=== PATIENT | male | born 1990 | race Caucasian/White ===

== ENCOUNTER 2017-02-05 01:38 | Emergency (ER) | payer MEDICARE, MEDICAID ==
[~2017-02-05] VITALS: Ht 175.3 cm; Wt 72.0 kg
[~2017-02-05 01:38] MED LIST: FLUO-191 PO; OLAN10TA3 PO
[2017-02-05 02:10] LABS: HEMATOCRIT 42.5 % (41-53); HEMOGLOBIN 14.3 g/dL (13.5-17.5); MEAN CORPUSCULAR VOLUME 91 fL (80-100); RED BLOOD CELL COUNT(AUTO) 4.68 MIL/uL (4.50-5.90); WHITE BLOOD COUNT (AUTO) 10.9 K/uL (4.5-11.0)
[2017-02-05 02:11] LABS: BASOPHILS # (AUTO) 0.05 K/uL (0.00-0.20); BASOPHILS % (AUTO) 0.4 % (0.0-2.0); EOSINOPHILS # (AUTO) 0.13 K/uL (0.00-0.70); EOSINOPHILS % (AUTO) 1.19 % (1.0-6.0); LYMPHOCYTES # (AUTO) 4.9 K/uL (1.0-4.8); LYMPHOCYTES % (AUTO) 45.2 % (22.0-44.0); MEAN CORPUSCULAR HEMOGLOBIN 30.5 pg (26.0-34.0); MEAN CORPUSCULAR HGB CONC 33.7 G/dL (31.0-37.0); MONOCYTES # (AUTO) 0.8 K/uL (0.1-1.0); NEUTROPHILS % (AUTO) 46.2 % (40.0-70.0); PLATELET COUNT (AUTO) 278 K/uL (150-450); RED CELL DISTRIBUTION WIDTH 13.6 % (11.5-14.5)
[2017-02-05 02:18] LABS: ANION GAP 6 mmol/L (8-16); CARBON DIOXIDE 31 mmol/L (22-29); CHLORIDE 102 mmol/L (98-107); CREATININE 0.87 mg/dL (0.60-1.30); GLOMERULAR FILTR. RATE CALC > 60 mL/min (>60); POTASSIUM 4.5 mmol/L (3.5-5.1); SODIUM SERUM 139 mmol/L (136-145); UREA NITROGEN, BLOOD 8 mg/dL (7-18)
[2017-02-05 02:24] LABS: ALANINE AMINOTRANSFERASE 16 U/L (12-78); ALBUMIN 4.2 g/dL (3.4-5.0); ASPARTATE AMINOTRANSFERASE 15 U/L (15-37); BILIRUBIN,TOTAL 0.2 mg/dL (0.1-1.0); TOTAL PROTEIN, SERUM 7.8 g/dL (6.4-8.2)
[2017-02-05] MEDS ORDERED: LORazepam 2 MG TABLET PO ONE (03:45)
[2017-02-05 03:54] VITALS: BP 130/70
== END 2017-02-05 05:14 | disposition home or self-care (01) ==
LOC: EMS 01:39
DX: F41.9 Anxiety disorder, unspecified (principal); F20.9 Schizophrenia, unspecified; F32.9 Major depressive disorder, single episode, unspecified; F17.210 Nicotine dependence, cigarettes, uncomplicated; F12.90 Cannabis use, unspecified, uncomplicated; F19.90 Other psychoactive substance use, unspecified, uncomplicated
CPT/HCPCS: 36415; 80053; 80307; 85025; 99285; G0480

== ENCOUNTER 2017-05-22 19:49 | Inpatient (IN) | payer MEDICARE, MEDICAID ==
[~2017-05-22] VITALS: Ht 175.3 cm; Wt 57.9 kg
[2017-05-22 20:09] LABS: BASOPHILS % (AUTO) 0.5 % (0.0-2.0); EOSINOPHILS % (AUTO) 1.3 % (1.0-6.0); HEMATOCRIT 38.9 % (41-53); HEMOGLOBIN 13.4 g/dL (13.5-17.5); LYMPHOCYTES # (AUTO) 4.5 K/uL (1.0-4.8); LYMPHOCYTES % (AUTO) 47.7 % (22.0-44.0); MEAN CORPUSCULAR HEMOGLOBIN 31.7 pg (26.0-34.0); MEAN CORPUSCULAR HGB CONC 34.4 G/dL (31.0-37.0); MEAN CORPUSCULAR VOLUME 92 fL (80-100); MONOCYTES # (AUTO) 0.7 K/uL (0.1-1.0); MONOCYTES % (AUTO) 7.8 % (2.0-9.0); NEUTROPHILS % (AUTO) 42.7 % (40.0-70.0); PLATELET COUNT (AUTO) 272 K/uL (150-450); RED BLOOD CELL COUNT(AUTO) 4.22 MIL/uL (4.50-5.90); RED CELL DISTRIBUTION WIDTH 12.8 % (11.5-14.5); WHITE BLOOD COUNT (AUTO) 9.5 K/uL (4.5-11.0)
[2017-05-22 20:18] LABS: ANION GAP 7 mmol/L (8-16); CALCIUM, TOTAL 8.9 mg/dL (8.8-10.5); CARBON DIOXIDE 29 mmol/L (22-29); CHLORIDE 103 mmol/L (98-107); CREATININE 1.06 mg/dL (0.60-1.30); GLOMERULAR FILTR. RATE CALC > 60 mL/min (>60); POTASSIUM 3.6 mmol/L (3.5-5.1); SODIUM SERUM 139 mmol/L (136-145); UREA NITROGEN, BLOOD 8 mg/dL (7-18)
[2017-05-22 20:24] LABS: ALANINE AMINOTRANSFERASE 17 U/L (12-78); ALBUMIN 3.9 g/dL (3.4-5.0); ASPARTATE AMINOTRANSFERASE 16 U/L (15-37); BILIRUBIN,TOTAL 0.2 mg/dL (0.1-1.0); TOTAL PROTEIN, SERUM 7.2 g/dL (6.4-8.2)
[2017-05-22] MEDS ORDERED: LORazepam 2 MG TABLET PO ONE (21:15)
[2017-05-22 22:00] VITALS: BP 112/65
[2017-05-22] MEDS ORDERED: LORazepam 2 MG TABLET PO PRN (22:15)
[2017-05-23] MEDS: HALOPERIDOL 5 MG TABLET PO PRN (00:28)
[2017-05-23] MEDS: ZOLPIDEM TARTRATE 10 MG TABLET PO PRN (00:28)
[2017-05-23 00:33] VITALS: BP 125/80
[2017-05-23 07:38] LABS: CHOL/HDL RATIO 2.8 (4.2-7.3)
[2017-05-23 08:30] VITALS: BP 101/61
[2017-05-23] MEDS: FLUoxetine HCL 20 MG CAPSULE PO SCH (11:31)
[2017-05-23 16:30] VITALS: BP 110/64
[2017-05-23 17:58] LABS: APPEARANCE,URINE CLEAR (CLEAR); GLUCOSE, URINE (UA) NEGATIVE (NEGATIVE); KETONES,URINE NEGATIVE (NEGATIVE); LEUKOCYTE ESTERASE ,URINE NEGATIVE (NEGATIVE); OCCULT BLOOD,URINE NEGATIVE (NEGATIVE); PH,URINE 6.5 (5.0-8.0); PROTEIN,URINE NEGATIVE (NEGATIVE)
[2017-05-23 18:00] LABS: ADD UA MICROSCOPIC NO
[2017-05-23] MEDS: OLANZapine 10 MG TABLET PO SCH (20:06)
[2017-05-24 07:04] LABS: CREATINE KINASE MB 0.8 ng/mL (0-5); CREATINE KINASE, TOTAL 92 U/L (39-308)
[2017-05-24 07:05] LABS: HEMOGLOBIN A1C 5.4 % (4.5-6.2)
[2017-05-24] MEDS: FLUoxetine HCL 20 MG CAPSULE PO SCH (08:27)
[2017-05-24 08:49] VITALS: BP 110/68
[2017-05-24 16:29] VITALS: BP 93/75
[2017-05-24] MEDS: OLANZapine 10 MG TABLET PO SCH (20:26)
[2017-05-25] MEDS: FLUoxetine HCL 20 MG CAPSULE PO SCH (08:34)
[2017-05-25 09:08] LABS: HEPATITIS Bs ANTIGEN SCREEN P Negative (Negative); HEPATITIS C AB SCREEN <0.1 s/co ratio (0.0-0.9)
[2017-05-25 10:46] VITALS: BP 98/60
[2017-05-25 16:30] VITALS: BP 102/61
[2017-05-25] MEDS: OLANZapine 10 MG TABLET PO SCH (20:07)
[2017-05-26] MEDS: FLUoxetine HCL 20 MG CAPSULE PO SCH (08:34)
[2017-05-26 10:05] VITALS: BP 114/60
[2017-05-26] MEDS ORDERED: PALIPERIDONE 3 MG ER TABLET PO ONE ×2 (14:15→21:00)
[2017-05-26] MEDS ORDERED: PALIPERIDONE 6 MG ER TABLET PO SCH (17:00)
[2017-05-26] MEDS ORDERED: PALIPERIDONE 3 MG ER TABLET PO SCH (17:00)
[2017-05-26 17:19] VITALS: BP 122/80
[2017-05-27] MEDS: ZOLPIDEM TARTRATE 10 MG TABLET PO PRN ×2 (01:12→20:15)
[2017-05-27] MEDS: HALOPERIDOL 5 MG TABLET PO PRN (03:04)
[2017-05-27 04:38] VITALS: BP 120/77
[2017-05-27] MEDS: MAGNESIUM OXIDE 400 MG TABLET PO SCH (08:47)
[2017-05-27] MEDS: CHOLECALCIFEROL (VIT D3) 1,000 UNITS TABLET PO SCH (08:47)
[2017-05-27] MEDS: PALIPERIDONE 6 MG ER TABLET PO SCH ×2 (08:48→16:18)
[2017-05-27] MEDS: FLUoxetine HCL 20 MG CAPSULE PO SCH (08:48)
[2017-05-27 13:29] VITALS: BP 104/54
[2017-05-27 17:24] VITALS: BP 113/69
[2017-05-28 08:05] VITALS: BP 117/71
[2017-05-28] MEDS ORDERED: PALIPERIDONE PALMITATE 234 MG/1.5 ML SYRINGE IM SCH (09:00)
[2017-05-28] MEDS: MAGNESIUM OXIDE 400 MG TABLET PO SCH ×2 (09:00→16:03)
[2017-05-28] MEDS: PALIPERIDONE 6 MG ER TABLET PO SCH ×2 (09:28→16:03)
[2017-05-28] MEDS: FLUoxetine HCL 20 MG CAPSULE PO SCH (09:28)
[2017-05-28] MEDS: CHOLECALCIFEROL (VIT D3) 1,000 UNITS TABLET PO SCH (09:30)
[2017-05-28 17:00] VITALS: BP 111/67
[2017-05-28] MEDS: ZOLPIDEM TARTRATE 10 MG TABLET PO PRN (21:15)
[2017-05-29] MEDS: MAGNESIUM OXIDE 400 MG TABLET PO SCH ×2 (08:07→17:05)
[2017-05-29] MEDS: CHOLECALCIFEROL (VIT D3) 1,000 UNITS TABLET PO SCH (08:07)
[2017-05-29] MEDS: FLUoxetine HCL 20 MG CAPSULE PO SCH (08:07)
[2017-05-29] MEDS: PALIPERIDONE 6 MG ER TABLET PO SCH ×2 (08:07→17:05)
[2017-05-29 08:11] VITALS: BP 119/65
[2017-05-29 16:41] VITALS: BP 107/66
[2017-05-30 08:00] VITALS: BP 105/56
[2017-05-30] MEDS: PALIPERIDONE 6 MG ER TABLET PO SCH ×2 (08:15→16:01)
[2017-05-30] MEDS: MAGNESIUM OXIDE 400 MG TABLET PO SCH ×2 (08:16→16:01)
[2017-05-30] MEDS: FLUoxetine HCL 20 MG CAPSULE PO SCH (08:16)
[2017-05-30] MEDS: CHOLECALCIFEROL (VIT D3) 1,000 UNITS TABLET PO SCH (08:16)
[2017-05-30] MEDS ORDERED: BISACODYL 5 MG EC TABLET PO PRN (09:00)
[2017-05-30 16:50] VITALS: BP 113/61
[2017-05-30] MEDS: ZOLPIDEM TARTRATE 10 MG TABLET PO PRN (20:20)
[2017-05-31 04:35] VITALS: BP 128/80
[2017-05-31 08:05] VITALS: BP 121/86
[2017-05-31] MEDS: CHOLECALCIFEROL (VIT D3) 1,000 UNITS TABLET PO SCH (09:07)
[2017-05-31] MEDS: FLUoxetine HCL 20 MG CAPSULE PO SCH (09:08)
[2017-05-31] MEDS: MAGNESIUM OXIDE 400 MG TABLET PO SCH (09:08)
[2017-05-31] MEDS ORDERED: PALI6 PO (10:43)
[2017-05-31] MEDS ORDERED: MAGOX PO (10:51)
[2017-05-31] MEDS ORDERED: VITAD1000 PO (10:51)
[2017-05-31] MEDS ORDERED: PALI234D IM (10:51)
[2017-05-31] MEDS: PALIPERIDONE 6 MG ER TABLET PO SCH (10:56)
== END 2017-05-31 15:15 | disposition home or self-care (01) | DRG 885 ==
LOC: EMS 19:51 → 3EX 21:00
PROVIDERS: ADMIT Psychiatry & Neurology Child & Adolescent Psychiatry; ATTEND Psychiatry & Neurology Psychiatry
DX: F25.0 Schizoaffective disorder, bipolar type (principal); Z59.0 Homelessness; D64.9 Anemia, unspecified; Z72.0 Tobacco use; Z87.820 Personal history of traumatic brain injury; E55.9 Vitamin D deficiency, unspecified; E83.42 Hypomagnesemia; L57.8 Other skin changes due to chronic exposure to nonionizing radiation; K59.00 Constipation, unspecified
CPT/HCPCS: 80074; 80307; 82306; 82607; 82746; 83036; 83735; 84439; 84443; 86592; 99285; G0480

== ENCOUNTER 2017-08-26 10:44 | Inpatient (IN) | payer MEDICARE, MEDICAID ==
[~2017-08-26] VITALS: Ht 172.7 cm; Wt 58.8 kg
[~2017-08-26 10:44] MED LIST changes: +MAGOX PO; -OLAN10TA3 PO; +PALI6 PO; +VITAD1000 PO
[2017-08-26 12:33] LABS: BASOPHILS % (AUTO) 0.5 % (0.0-2.0); EOSINOPHILS % (AUTO) 1.7 % (1.0-6.0); HEMATOCRIT 39.3 % (41-53); HEMOGLOBIN 13.5 g/dL (13.5-17.5); LYMPHOCYTES # (AUTO) 2.9 K/uL (1.0-4.8); LYMPHOCYTES % (AUTO) 41.5 % (22.0-44.0); MEAN CORPUSCULAR HEMOGLOBIN 31.9 pg (26.0-34.0); MEAN CORPUSCULAR HGB CONC 34.3 G/dL (31.0-37.0); MEAN CORPUSCULAR VOLUME 93 fL (80-100); MONOCYTES # (AUTO) 0.5 K/uL (0.1-1.0); NEUTROPHILS # (AUTO) 3.4 K/uL (1.8-7.7); NEUTROPHILS % (AUTO) 49.3 % (40.0-70.0); PLATELET COUNT (AUTO) 294 K/uL (150-450); RED BLOOD CELL COUNT(AUTO) 4.23 MIL/uL (4.50-5.90); RED CELL DISTRIBUTION WIDTH 13.2 % (11.5-14.5); WHITE BLOOD COUNT (AUTO) 6.9 K/uL (4.5-11.0)
[2017-08-26 12:37] LABS: ANION GAP 4 mmol/L (8-16); CALCIUM, TOTAL 8.6 mg/dL (8.8-10.5); CARBON DIOXIDE 32 mmol/L (22-29); CHLORIDE 105 mmol/L (98-107); CREATININE 0.99 mg/dL (0.60-1.30); GLOMERULAR FILTR. RATE CALC > 60 mL/min (>60); SODIUM SERUM 141 mmol/L (136-145); UREA NITROGEN, BLOOD 8 mg/dL (7-18)
[2017-08-26 12:43] LABS: ALANINE AMINOTRANSFERASE 15 U/L (12-78); ALBUMIN 3.8 g/dL (3.4-5.0); ASPARTATE AMINOTRANSFERASE 11 U/L (15-37); BILIRUBIN,TOTAL 0.5 mg/dL (0.1-1.0)
[2017-08-26] MEDS ORDERED: ZOLPIDEM TARTRATE 10 MG TABLET PO PRN (12:45)
[2017-08-26] MEDS ORDERED: LORazepam 2 MG TABLET PO PRN (12:45)
[2017-08-26] MEDS ORDERED: HALOPERIDOL 5 MG TABLET PO PRN (12:45)
[2017-08-26] MEDS ORDERED: PALI234D IM (15:21)
[2017-08-26] MEDS ORDERED: INFLUENZA VIRUS VACCINE QVS 2017-18 (3YR+)/PF 60 MCG/0.5 ML SYRINGE IM ONE (15:45)
[2017-08-26] MEDS: PALIPERIDONE 6 MG ER TABLET PO SCH (16:06)
[2017-08-26] MEDS: FLUoxetine HCL 20 MG CAPSULE PO SCH (16:06)
[2017-08-26 16:40] VITALS: BP 104/58
[2017-08-27 00:05] VITALS: BP 117/65
[2017-08-27 08:33] VITALS: BP 105/60
[2017-08-27] MEDS ORDERED: PALIPERIDONE PALMITATE 234 MG/1.5 ML SYRINGE IM SCH (09:00)
[2017-08-27 09:06] LABS: CHOL/HDL RATIO 3.1 (4.2-7.3)
[2017-08-27] MEDS: PALIPERIDONE 6 MG ER TABLET PO SCH ×2 (09:06→17:11)
[2017-08-27] MEDS: FLUoxetine HCL 20 MG CAPSULE PO SCH (09:06)
[2017-08-27] MEDS: NICOTINE 21 MG/24 HOUR PATCH TD SCH (09:06)
[2017-08-27 16:23] VITALS: BP 109/61
[2017-08-28 01:25] VITALS: BP 112/60
[2017-08-28 08:17] VITALS: BP 110/62
[2017-08-28] MEDS: FLUoxetine HCL 20 MG CAPSULE PO SCH (09:00)
[2017-08-28] MEDS: PALIPERIDONE 6 MG ER TABLET PO SCH ×2 (09:00→16:46)
[2017-08-28] MEDS: NICOTINE 21 MG/24 HOUR PATCH TD SCH (09:00)
[2017-08-28 09:45] LABS: CREATINE KINASE, TOTAL 114 U/L (39-308)
[2017-08-28 09:53] LABS: CREATINE KINASE MB < 0.5 ng/mL (0-5)
[2017-08-28 16:08] VITALS: BP 113/73
[2017-08-28] MEDS: MAGNESIUM OXIDE 400 MG TABLET PO SCH (16:51)
[2017-08-29 02:34] VITALS: BP 117/63
[2017-08-29] MEDS: CHOLECALCIFEROL (VIT D3) 1,000 UNITS TABLET PO SCH (08:24)
[2017-08-29] MEDS: FLUoxetine HCL 20 MG CAPSULE PO SCH (08:24)
[2017-08-29] MEDS: MAGNESIUM OXIDE 400 MG TABLET PO SCH ×2 (08:24→16:37)
[2017-08-29] MEDS: PALIPERIDONE 6 MG ER TABLET PO SCH ×2 (08:24→16:37)
[2017-08-29] MEDS: NICOTINE 21 MG/24 HOUR PATCH TD SCH (08:24)
[2017-08-29 08:44] VITALS: BP 120/75
[2017-08-29] MEDS ORDERED: BISACODYL 5 MG EC TABLET PO PRN (09:45)
[2017-08-29 16:12] VITALS: BP 112/66
[2017-08-30 01:29] VITALS: BP 112/72
[2017-08-30] MEDS: CHOLECALCIFEROL (VIT D3) 1,000 UNITS TABLET PO SCH (08:23)
[2017-08-30] MEDS: PALIPERIDONE 6 MG ER TABLET PO SCH ×2 (08:23→16:19)
[2017-08-30] MEDS: FLUoxetine HCL 20 MG CAPSULE PO SCH (08:23)
[2017-08-30] MEDS: MAGNESIUM OXIDE 400 MG TABLET PO SCH ×2 (08:23→16:19)
[2017-08-30 08:24] VITALS: BP 109/64
[2017-08-30] MEDS: NICOTINE 21 MG/24 HOUR PATCH TD SCH (08:24)
[2017-08-30 16:05] VITALS: BP 109/63
[2017-08-31 06:29] VITALS: BP 111/60
[2017-08-31 08:12] VITALS: BP 112/80
[2017-08-31] MEDS: PALIPERIDONE 6 MG ER TABLET PO SCH ×2 (08:23→16:09)
[2017-08-31] MEDS: NICOTINE 21 MG/24 HOUR PATCH TD SCH (08:24)
[2017-08-31] MEDS: MAGNESIUM OXIDE 400 MG TABLET PO SCH ×2 (08:24→16:09)
[2017-08-31] MEDS: CHOLECALCIFEROL (VIT D3) 1,000 UNITS TABLET PO SCH (08:24)
[2017-08-31] MEDS: FLUoxetine HCL 20 MG CAPSULE PO SCH (08:24)
[2017-08-31 16:07] VITALS: BP 114/72
[2017-09-01 06:16] VITALS: BP 119/80
[2017-09-01 08:23] VITALS: BP 125/61
[2017-09-01] MEDS: PALIPERIDONE 6 MG ER TABLET PO SCH ×2 (08:37→16:41)
[2017-09-01] MEDS: CHOLECALCIFEROL (VIT D3) 1,000 UNITS TABLET PO SCH (08:37)
[2017-09-01] MEDS: FLUoxetine HCL 20 MG CAPSULE PO SCH (08:37)
[2017-09-01] MEDS: NICOTINE 21 MG/24 HOUR PATCH TD SCH (08:37)
[2017-09-01] MEDS: MAGNESIUM OXIDE 400 MG TABLET PO SCH ×2 (08:37→16:41)
[2017-09-01 16:03] VITALS: BP 125/76
[2017-09-02 03:15] VITALS: BP 117/64
[2017-09-02 08:10] VITALS: BP 106/69
[2017-09-02] MEDS: CHOLECALCIFEROL (VIT D3) 1,000 UNITS TABLET PO SCH (08:23)
[2017-09-02] MEDS: PALIPERIDONE 6 MG ER TABLET PO SCH ×2 (08:23→16:17)
[2017-09-02] MEDS: FLUoxetine HCL 20 MG CAPSULE PO SCH (08:23)
[2017-09-02] MEDS: MAGNESIUM OXIDE 400 MG TABLET PO SCH ×2 (08:23→16:17)
[2017-09-02] MEDS: NICOTINE 21 MG/24 HOUR PATCH TD SCH (08:24)
[2017-09-02 16:07] VITALS: BP 108/68
[2017-09-03 05:45] VITALS: BP 100/60
[2017-09-03 08:04] VITALS: BP 114/74
[2017-09-03 08:07] LABS: ALANINE AMINOTRANSFERASE 17 U/L (12-78); ALBUMIN 3.7 g/dL (3.4-5.0); ANION GAP 5 mmol/L (8-16); ASPARTATE AMINOTRANSFERASE 11 U/L (15-37); BILIRUBIN,TOTAL 0.2 mg/dL (0.1-1.0); CALCIUM, TOTAL 8.7 mg/dL (8.8-10.5); CARBON DIOXIDE 29 mmol/L (22-29); CHLORIDE 104 mmol/L (98-107); CREATINE KINASE, TOTAL 55 U/L (39-308); CREATININE 1.02 mg/dL (0.60-1.30); GLOMERULAR FILTR. RATE CALC > 60 mL/min (>60); POTASSIUM 4.4 mmol/L (3.5-5.1); SODIUM SERUM 138 mmol/L (136-145); TOTAL PROTEIN, SERUM 6.5 g/dL (6.4-8.2); UREA NITROGEN, BLOOD 20 mg/dL (7-18)
[2017-09-03] MEDS: FLUoxetine HCL 20 MG CAPSULE PO SCH (08:36)
[2017-09-03] MEDS: MAGNESIUM OXIDE 400 MG TABLET PO SCH ×2 (08:36→16:46)
[2017-09-03] MEDS: PALIPERIDONE 6 MG ER TABLET PO SCH ×2 (08:36→16:46)
[2017-09-03] MEDS: CHOLECALCIFEROL (VIT D3) 1,000 UNITS TABLET PO SCH (08:36)
[2017-09-03] MEDS: NICOTINE 21 MG/24 HOUR PATCH TD SCH (08:37)
[2017-09-03 16:00] VITALS: BP 116/63
[2017-09-04 02:25] VITALS: BP 106/68
[2017-09-04 08:15] VITALS: BP 106/64
[2017-09-04] MEDS: CHOLECALCIFEROL (VIT D3) 1,000 UNITS TABLET PO SCH (08:30)
[2017-09-04] MEDS: MAGNESIUM OXIDE 400 MG TABLET PO SCH ×2 (08:30→16:41)
[2017-09-04] MEDS: FLUoxetine HCL 20 MG CAPSULE PO SCH (08:30)
[2017-09-04] MEDS: PALIPERIDONE 6 MG ER TABLET PO SCH ×2 (08:30→16:41)
[2017-09-04] MEDS: NICOTINE 21 MG/24 HOUR PATCH TD SCH (08:31)
[2017-09-04 16:11] VITALS: BP 110/66
[2017-09-05 06:39] VITALS: BP 124/58
[2017-09-05] MEDS: FLUoxetine HCL 20 MG CAPSULE PO SCH (08:10)
[2017-09-05] MEDS: CHOLECALCIFEROL (VIT D3) 1,000 UNITS TABLET PO SCH (08:11)
[2017-09-05] MEDS: MAGNESIUM OXIDE 400 MG TABLET PO SCH ×2 (08:11→16:53)
[2017-09-05] MEDS: NICOTINE 21 MG/24 HOUR PATCH TD SCH (08:11)
[2017-09-05] MEDS: PALIPERIDONE 6 MG ER TABLET PO SCH ×2 (08:11→16:53)
[2017-09-05 08:34] VITALS: BP 118/62
[2017-09-05 16:18] VITALS: BP 114/68
[2017-09-05] MEDS ORDERED: FLUO40CA7 PO (17:07)
== END 2017-09-05 21:31 | DRG 885 ==
LOC: EMS 10:46 → EDBD 10:46 → B2X 12:58
PROVIDERS: ADMIT Psychiatry & Neurology Psychiatry; ATTEND Psychiatry & Neurology Psychiatry
DX: F25.0 Schizoaffective disorder, bipolar type (principal); E83.42 Hypomagnesemia; D64.9 Anemia, unspecified; J45.909 Unspecified asthma, uncomplicated; R79.89 Other specified abnormal findings of blood chemistry; K59.00 Constipation, unspecified; F17.210 Nicotine dependence, cigarettes, uncomplicated; Z59.0 Homelessness; Z87.820 Personal history of traumatic brain injury; Z91.19 Patient's noncompliance with other medical treatment and regimen; Z28.21 Immunization not carried out because of patient refusal; Z79.899 Other long term (current) drug therapy
CPT/HCPCS: 82306; 83735; 90471; 99285; G0480